=== PATIENT | male | born 1935 | race Native Hawaiian/Other Pacific Islander ===

== ENCOUNTER 2019-09-14 12:49 | Outpatient (CLI) | payer OTHER ==
[2019-09-14 14:23] LABS: PLATELET COUNT 283 K/uL (142-355)
== END 2019-09-14 19:27 | disposition home or self-care (01) ==
LOC: LAB 12:49
PROVIDERS: Urology
DX: Z79.899 Other long term (current) drug therapy (principal); Z74.09 Other reduced mobility; R39.89 Other symptoms and signs involving the genitourinary system
CPT/HCPCS: 84450; 84460; 85027; 85651; 86141